=== PATIENT | male | born 1960 | race Caucasian/White ===

== ENCOUNTER → 2017-09-27 12:36 | Outpatient (CLI) | payer MEDICARE ==
[~2017-09-27] VITALS: Ht 195.6 cm; Wt 163.3 kg
[~2017-09-27 12:36] MED LIST: ALTACE10 MG PO; CIPRO500 MG PO; FLOMAX0.4 MG PO; GEMFIBROZIL600 MG PO; GLIPIZIDE10 MG PO; GLUCOTROL 5 MG T5 MG PO; HYDROCHLOROTH12.5 M1 PO; HYDROCHLOROTHIA25 MG PO; IMDUR30 MG PO; ISOSORBIDE MONO10 MG PO; LACTINEX GRANUL1 PCK PO; LANTUS INSULIN10 ML SC; MONOKET10 MG; OMEGA 3 FISH OI1 CAP PO; PERCOCET 10/3251 TA1 PO; PLAVIX75 MG PO; RESTORIL15 MG PO; TOPROL XL25 MG PO; VIIBRYD40 MG PO
[2017-09-27 14:32] VITALS: Ht 195.6 cm; Wt 163.3 kg
== END | disposition home or self-care (01) ==
LOC: D.FANS 08-31 09:00
DX: E66.01 Morbid (severe) obesity due to excess calories (principal)

== ENCOUNTER → 2017-12-06 07:36 | Outpatient (CLI) | payer MEDICARE ==
[2017-09-27 14:32] VITALS: BMI 42.7
== END | disposition home or self-care (01) ==
LOC: D.RT 07:36
DX: R06.02 Shortness of breath (principal)

== ENCOUNTER 2018-11-16 07:10 | Outpatient (CLI) | payer MEDICARE ==
[2017-09-27 14:32] VITALS: BMI 42.7
== END 2018-11-16 09:00 | disposition home or self-care (01) ==
LOC: D.OPS 07:10
PROVIDERS: ATTEND Surgery
DX: E66.01 Morbid (severe) obesity due to excess calories (principal)

== ENCOUNTER 2018-11-27 06:10 | Day surgery (SDC) | payer MEDICARE ==
[~2018-11-27] VITALS: Ht 195.6 cm; Wt 165.5 kg
[2018-11-27 06:39] LABS: HEMOGLOBIN 15.3 g/dL (13.5-17.5); MCH 29.4 pg (26.0-34.0); MCHC 33.3 g/dL (31.0-37.0); MCV 88.5 fL (80.0-100.0); MEAN PLATELET VOLUME 9.7 fL (7.4-10.4); RBC 5.2 10x6/uL (4.20-6.10); RDW 14.2 % (11.5-14.5)
[2018-11-27 06:57] LABS: CALC OSMOLALITY 285 mosm/kg (275-300); CALCIUM 9.3 mg/dL (8.5-10.1); CARBON DIOXIDE 25.7 mmol/L (21.0-32.0); CHLORIDE - SERUM 104 mmol/L (98-107); CREATININE - SERUM 0.9 mg/dL (0.6-1.3); SODIUM 138 mmol/L (136-145); UREA NITROGEN 31 mg/dL (7-18); eGFR NON AFRICAN AMERICAN > 90 mL/min (90-120)
[2018-11-27 06:58] LABS: GLUCOSE 157 mg/dL (74-106)
[2018-11-27] MEDS ORDERED: TOUJEO SOL300 UNIT/1 SC (07:32)
[2018-11-27] MEDS ORDERED: VICTOZA0.6 MG/0.1 SQ (07:32)
[2018-11-27] MEDS ORDERED: PROZAC40 MG PO (07:32)
[2018-11-27] MEDS ORDERED: HYDROCODON-ACE1 EA10 PO (07:32)
[2018-11-27] MEDS ORDERED: NIASPAN500 MG PO (07:33)
[2018-11-27] MEDS ORDERED: GLUCOPHAGE1000 MG PO (07:34)
[2018-11-27 07:59] VITALS: BP 139/69; Ht 195.6 cm; Wt 165.5 kg
--- NOTE | 2018-11-27 09:17 | NUR ---
0915 [facility] DIET SERVED. AT BEDSIDE.
--- NOTE | 2018-11-27 09:46 | NUR ---
0950 DC INSTS GIVEN VOICED UNDERSTANDING GETTING DRESSED RELEASED IN WC WITH ESCORT.
== END 2018-11-27 10:10 | disposition home or self-care (01) ==
LOC: D.OPS 06:10
PROVIDERS: Anesthesiology; ATTEND Surgery
DX: K29.80 Duodenitis without bleeding (principal); K29.50 Unspecified chronic gastritis without bleeding; K20.9 Esophagitis, unspecified; E66.01 Morbid (severe) obesity due to excess calories; G47.33 Obstructive sleep apnea (adult) (pediatric); Z68.42 Body mass index [BMI] 45.0-49.9, adult; Z01.812 Encounter for preprocedural laboratory examination

== ENCOUNTER 2018-12-21 14:40 | Inpatient (IN) | payer MEDICARE ==
[~2018-12-21] VITALS: Ht 193 cm; Wt 171.5 kg
[~2018-12-21 14:40] MED LIST changes: +GLUCOPHAGE1000 MG PO; +HYDROCODON-ACE1 EA10 PO; +NIASPAN500 MG PO; +PROZAC40 MG PO; +TOUJEO SOL300 UNIT/1 SC; +VICTOZA0.6 MG/0.1 SQ
[2019-01-05] MEDS ORDERED: OZEMPIC SQ (14:35)
[2019-01-05 15:43] LABS: ANION GAP 18.2 mmol/L (8-16); CALCIUM 9.3 mg/dL (8.5-10.1); CARBON DIOXIDE 23.9 mmol/L (21.0-32.0); CREATININE - SERUM 1.2 mg/dL (0.6-1.3); POTASSIUM - SERUM 4.1 mmol/L (3.5-5.1)
[2019-01-05 15:47] LABS: HEMATOCRIT 42.9 % (42.0-54.0); HEMOGLOBIN 14.6 g/dL (13.5-17.5); MCH 30.2 pg (26.0-34.0); MCV 88.6 fL (80.0-100.0); MEAN PLATELET VOLUME 9.8 fL (7.4-10.4); RBC 4.84 10x6/uL (4.20-6.10); RDW 13.9 % (11.5-14.5)
[2019-01-08 07:56] VITALS: BP 151/89; BMI 45.6
[2019-01-08 15:24] VITALS: BP 137/72
[2019-01-08 15:47] VITALS: BP 145/78
--- NOTE | 2019-01-08 19:28 | NUR ---
PATIENT C/O LEFT ARM PAIN AND HAND NUMBNESS. EXPLAINED TO PATIENT THAT THIS COULD BE DUE TO POSITIONING DURING PROCEDURE OR GAS, PROVIDED PATIENT A WARM PACK FOR SHOULDER. NOTIFIED DR HOFFMANN OF PATIENTS PAIN AND NUMBNESS AND HE STATED THAT THIS WAS PROBABLY DUE TO CAUSES THAT NURSE HAD EXPLAINED TO PATIENT AND NO OTHER ORDERS RECIEVED
--- NOTE | 2019-01-08 20:00 | NUR ---
ALERT AND ORIENTIATED RESTING IN BED WITH C PAP IN USE, AT BEDSIDE, 30ML WATER GIVEN, INSTRUCTED COULD HAVE 30ML EVERY 30 MIN AND NO MORE VERBALIZED UNDERSTANDING, INSTRUCTED WOULD NEED TO WALK A LITTLE WAY ABOUT 9 PM, STATES IF MY SHOULDER WILL QUIT HURTING,STERI STRIPS INTACT TO ABD LAP SITES SEE SHIFT ASSESSMENT, CALL LIGHT IN REACH
[2019-01-08 20:31] VITALS: BP 161/74
--- NOTE | 2019-01-08 21:15 | NUR ---
REFUSED TO WALK STATES MY SHOULDER STILL HURTS TO MUCH, EXPLAINED THAT DR WANTED HIM TO WALK [place], STATES I KNOW THAT BUT PTS HAVE RIGHTS TOO AND I DONT WANT TO WALK
[2019-01-09 00:15] VITALS: BP 127/73
[2019-01-09 05:08] VITALS: BP 164/72
[2019-01-09 06:27] LABS: BASOPHILS 0.2 % (0-2); EOSINOPHILS 0.1 % (0-7); HEMATOCRIT 41.1 % (42.0-54.0); HEMOGLOBIN 13.6 g/dL (13.5-17.5); IMMATURE GRANULOCYTES 0.4 % (0-5); LYMPHOCYTES 14.2 % (15-50); MCH 29.6 pg (26.0-34.0); MCHC 33.1 g/dL (31.0-37.0); MCV 89.3 fL (80.0-100.0); MEAN PLATELET VOLUME 9.9 fL (7.4-10.4); MONOCYTES 7.3 % (2-11); NEUTROPHILS 77.8 % (40-80); PLATELET COUNT 305 10x3/uL (130-400); RDW 14.2 % (11.5-14.5); WBC 13.3 10x3/uL (4.8-10.8)
[2019-01-09 07:02] LABS: ALBUMIN 3.3 g/dL (3.4-5.0); ALKALINE PHOSPHATASE 71 U/L (46-116); ALT (SGPT) 55 U/L (10-68); BILIRUBIN - TOTAL 0.25 mg/dL (0.2-1.3); CALC OSMOLALITY 285 mosm/kg (275-300); CALCIUM 8.8 mg/dL (8.5-10.1); CARBON DIOXIDE 23.5 mmol/L (21.0-32.0); CHLORIDE - SERUM 104 mmol/L (98-107); CREATININE - SERUM 0.9 mg/dL (0.6-1.3); POTASSIUM - SERUM 4.1 mmol/L (3.5-5.1); PROTEIN - SERUM 6.7 g/dL (6.4-8.2); SODIUM 139 mmol/L (136-145); UREA NITROGEN 24 mg/dL (7-18); eGFR NON AFRICAN AMERICAN > 90 mL/min (90-120)
[2019-01-09 07:17] LABS: GLUCOSE 171 mg/dL (74-106)
[2019-01-09 09:13] VITALS: BP 180/75
[2019-01-09 09:14] VITALS: Ht 193 cm; Wt 171.5 kg
[2019-01-09] MEDS ORDERED: OXYCODONE HCL5 M1 PO (09:51)
[2019-01-09] MEDS ORDERED: ZOFRAN ODT4 MG/UDTAB PO (09:51)
[2019-01-09 12:29] VITALS: BP 154/66
--- NOTE | 2019-01-09 12:40 | NUR ---
IV REMOVED FROM LEFT HAND WITH CATH INTACT, NO REDNESS OR EDEMA AT SITE. DISCHARGE INSTRUCTIONS EXPLAINED IN DETAIL TO PATIENT AND SPOUSE INCLUDING MEDICATIONS TO CONTINUE, DIET AND ACTIVITY, BOTH VOICED UNDERSTANDING. PATIENT TAKEN BY WHEELCHAIR TO PRIVATE CAR BY VOLUNTEER
== END 2019-01-09 12:42 | disposition home or self-care (01) | DRG 621 ==
LOC: D.SDCHOLD 01-08 07:32 → D.MS 01-08 14:42
PROVIDERS: Anesthesiology; ADMIT Surgery; ATTEND Surgery
PROC: 0DB64Z3 Excision of Stomach, Percutaneous Endoscopic Approach, Vertical (ICD-10-PCS; principal; 2019-01-08 09:30)
DX: E66.01 Morbid (severe) obesity due to excess calories (principal); Z68.42 Body mass index [BMI] 45.0-49.9, adult; G47.33 Obstructive sleep apnea (adult) (pediatric)

== ENCOUNTER 2019-01-10 16:29 | Inpatient (IN) | payer MEDICARE ==
[~2019-01-10] VITALS: Ht 193 cm; Wt 158.8 kg
[~2019-01-10 16:29] MED LIST changes: +OXYCODONE HCL5 M1 PO; +OZEMPIC SQ; +ZOFRAN ODT4 MG/UDTAB PO
[2019-01-10 18:34] LABS: BASOPHILS 0.1 % (0-2); EOSINOPHILS 1.2 % (0-7); HEMOGLOBIN 13.6 g/dL (13.5-17.5); IMMATURE GRANULOCYTES 0.2 % (0-5); LYMPHOCYTES 7.8 % (15-50); MCHC 33.2 g/dL (31.0-37.0); MCV 90.5 fL (80.0-100.0); MEAN PLATELET VOLUME 9.6 fL (7.4-10.4); MONOCYTES 8.4 % (2-11); NEUTROPHILS 82.3 % (40-80); PLATELET COUNT 272 10x3/uL (130-400); RBC 4.53 10x6/uL (4.20-6.10); WBC 16.3 10x3/uL (4.8-10.8)
[2019-01-10 19:07] LABS: ALBUMIN 3.3 g/dL (3.4-5.0); ALKALINE PHOSPHATASE 93 U/L (46-116); ALT (SGPT) 57 U/L (10-68); BILIRUBIN - TOTAL 0.44 mg/dL (0.2-1.3); CALC OSMOLALITY 281 mosm/kg (275-300); CALCIUM 8.6 mg/dL (8.5-10.1); CARBON DIOXIDE 25.1 mmol/L (21.0-32.0); CHLORIDE - SERUM 101 mmol/L (98-107); CREATININE - SERUM 0.9 mg/dL (0.6-1.3); GLUCOSE 155 mg/dL (74-106); POTASSIUM - SERUM 4.1 mmol/L (3.5-5.1); PROTEIN - SERUM 6.2 g/dL (6.4-8.2); SODIUM 139 mmol/L (136-145); eGFR NON AFRICAN AMERICAN > 90 mL/min (90-120)
[2019-01-10 19:10] LABS: UREA NITROGEN 15 mg/dL (7-18)
[2019-01-10 20:00] VITALS: BP 148/77
[2019-01-11] VITALS (7 sets, daily range): BP systolic 103–148; BP diastolic 52–77; Ht 193 cm; Wt 158.8 kg
[2019-01-11 03:44] LABS: APPEARANCE CLEAR (CLEAR); COLOR YELLOW (YELLOW)
[2019-01-11 03:45] LABS: BILIRUBIN NEGATIVE (NEGATIVE); GLUCOSE NEGATIVE (NEGATIVE); KETONE NEGATIVE (NEGATIVE); NITRITE NEGATIVE (NEGATIVE); PROTEIN NEGATIVE (NEGATIVE); SPECIFIC GRAVITY 1.015 (1.005-1.020); UROBILINOGEN NORMAL (NORMAL)
[2019-01-11 03:47] LABS: BACTERIA FEW /hpf (NONE SEEN); EPITHELIAL CELLS 0-5 /hpf (0-5); RED CELLS - URINE 0-5 /hpf (0-5); WHITE CELLS - URINE 0-5 /hpf (0-5)
--- NOTE | 2019-01-11 07:14 | NUR ---
PT IS RESTING IN BED WITH EYES CLOSED. RESPIRATIONS ARE EVEN AND UNLABORED. PT IS EASILY AROUSED WITH VERBAL STIMULATION. SPOUSE IS AT BEDSIDE. PT DENIES PRESENCE OF PAIN AT THIS TIME. [facility] [employer] DILAUDID IS AVAILABLE. PT ONLY COMPLAINT IS NPO STATUS.PT EDUCATED ON NPO STATUS. PT AND PT SPOUSE VERBALIZE UNDERSTANDING. LAP SITES TO ABDOMEN X 7. ABDOMEN IS DISTENDED. BED IS IN THE LOWEST POSITION. CALL LIGHT AND BEDSIDE TABLE ARE WITHIN REACH. SIDE RAILS X 2. PT DENIES FURTHER NEEDS. WILL CONT TO MONITOR.
[2019-01-11 11:45] LABS: BASOPHILS 0.2 % (0-2); EOSINOPHILS 2.8 % (0-7); HEMOGLOBIN 13.4 g/dL (13.5-17.5); IMMATURE GRANULOCYTES 0.5 % (0-5); LYMPHOCYTES 12.9 % (15-50); MCH 30.2 pg (26.0-34.0); MCHC 33.5 g/dL (31.0-37.0); MCV 90.3 fL (80.0-100.0); MEAN PLATELET VOLUME 9.5 fL (7.4-10.4); MONOCYTES 8.5 % (2-11); NEUTROPHILS 75.1 % (40-80); PLATELET COUNT 265 10x3/uL (130-400); RBC 4.43 10x6/uL (4.20-6.10); RDW 14.1 % (11.5-14.5); WBC 19.6 10x3/uL (4.8-10.8)
[2019-01-11 11:59] LABS: ANION GAP 11.9 mmol/L (8-16); CREATININE - SERUM 1.1 mg/dL (0.6-1.3); POTASSIUM - SERUM 3.9 mmol/L (3.5-5.1)
--- NOTE | 2019-01-12 00:56 | NUR ---
PT RESTING IN BED. ALERT AND ORIENTED. NO SIGNS OF DISTRESS. BREATHING EVEN AND UNLABORED. PT STATES NO PROBLEMS AT THIS TIME. IV SITE RT AC DRESSING CLEAN DRY AND ITNACT. ABD INCISONS CLEAN DRY AND INTACT. 2LO2 NASAL CANNULA. WILL CONTINUE PLAN OF CARE. CALL LIGHT IN REACH. BED LOWERED AND LOCKED.
[2019-01-12 04:00] VITALS: BP 128/59
--- NOTE | 2019-01-12 06:32 | NUR ---
I have reviewed this patient and I concur with the Shift Assessment completed by the Licensed Practical Nurse today this shift.
[2019-01-12 06:53] LABS: ANION GAP 12.7 mmol/L (8-16); CALCIUM 8.6 mg/dL (8.5-10.1); CARBON DIOXIDE 26.8 mmol/L (21.0-32.0); CREATININE - SERUM 1.1 mg/dL (0.6-1.3); POTASSIUM - SERUM 3.5 mmol/L (3.5-5.1)
[2019-01-12 06:57] LABS: BASOPHILS 0.2 % (0-2); EOSINOPHILS 3.9 % (0-7); HEMATOCRIT 35.7 % (42.0-54.0); HEMOGLOBIN 11.7 g/dL (13.5-17.5); IMMATURE GRANULOCYTES 0.3 % (0-5); MCH 29.8 pg (26.0-34.0); MCHC 32.8 g/dL (31.0-37.0); MCV 90.8 fL (80.0-100.0); MEAN PLATELET VOLUME 9.9 fL (7.4-10.4); NEUTROPHILS 71.6 % (40-80); PLATELET COUNT 287 10x3/uL (130-400); RBC 3.93 10x6/uL (4.20-6.10); WBC 17.2 10x3/uL (4.8-10.8)
--- NOTE | 2019-01-12 08:00 | NUR ---
ALERT AND ORIENTEDX4 WITH LIMITED ROM TO LT. ARM DUE TO RIB PAIN. PT UP TO SIDE OF BED WITH ASSSIT OF THERAPY. LUNGS CTA. HRRR. ABDOMEN SOFT WITH BS NOTED. LIDOCAINE PATCH APPLIED TO LEFT SCAPULA AREA. SCD'S INTACT
[2019-01-12 08:29] VITALS: BP 171/71
--- NOTE | 2019-01-12 09:00 | NUR ---
ALERT AND ORIENTED WITH ABDOMEN OBESE WITH BS NOTED. SUTURES INTACT TO ABDOMEN WITH STERISTRIPS INTACT. LUNGS CTA AND STATED DIDN'T SLEEP WELL LAST NIGHT DUE TO NOT ABLE TO HAVE C-PAP FOR SLEEPING ASSIST. TELEMETRY INTACT AND DENIES ANY PAIN AT THIS TIME. BS NOTED X4 ANTERIOR AND STATES IS HAVING FLATULANCE. ENCOURAGED TO USE CALL LIGHT FOR ASSIST WITH PRESENT.
--- NOTE | 2019-01-12 14:11 | NUR ---
NUTRITION F/U CHART REVIEWED. PT SLEEPING, FAMILY AT BEDSIDE. NURSING REPORTS PROVIDING PT WITH BARIATRIC CLEARS. WILL CONTINUE TO MONITOR PT PROGRESS. RD FOLLOWING
[2019-01-12] MEDS ORDERED: LEVOFLOXACIN500 MG PO (15:05)
[2019-01-12 16:00] VITALS: BP 140/63
[2019-01-12 18:19] VITALS: BP 140/63
[2019-01-12 21:13] VITALS: BP 133/64
--- NOTE | 2019-01-13 00:42 | NUR ---
PT RESTING IN BED. EYES CLOSED. NO SIGNS OF DISTRESS. BREATHING EVEN AND UNLABORED. IV SITE LT AC DRESSING CLEAN DRY AND INTACT. NO SIGNS OF INFECTION. WILL CONTINUE PLAN OF CARE. BED LOWERED AND LOCKED. BED RAILS UP X2. CALL LIGHT IN REACH.
[2019-01-13 01:15] VITALS: BP 130/60
[2019-01-13 08:45] VITALS: BP 143/75
[2019-01-13 09:18] LABS: BASOPHILS 0.3 % (0-2); EOSINOPHILS 6.1 % (0-7); HEMATOCRIT 35.2 % (42.0-54.0); HEMOGLOBIN 11.8 g/dL (13.5-17.5); IMMATURE GRANULOCYTES 0.5 % (0-5); LYMPHOCYTES 14.3 % (15-50); MCHC 33.5 g/dL (31.0-37.0); MCV 89.6 fL (80.0-100.0); MEAN PLATELET VOLUME 9.7 fL (7.4-10.4); MONOCYTES 8.3 % (2-11); NEUTROPHILS 70.5 % (40-80); PLATELET COUNT 322 10x3/uL (130-400); RBC 3.93 10x6/uL (4.20-6.10); RDW 13.6 % (11.5-14.5); WBC 14.9 10x3/uL (4.8-10.8)
[2019-01-13 09:35] LABS: ALKALINE PHOSPHATASE 133 U/L (46-116); ALT (SGPT) 33 U/L (10-68); BILIRUBIN - TOTAL 0.56 mg/dL (0.2-1.3); CALCIUM 8.8 mg/dL (8.5-10.1); CARBON DIOXIDE 24.3 mmol/L (21.0-32.0); CHLORIDE - SERUM 102 mmol/L (98-107); POTASSIUM - SERUM 3.6 mmol/L (3.5-5.1); PROTEIN - SERUM 6.7 g/dL (6.4-8.2); SODIUM 135 mmol/L (136-145); UREA NITROGEN 13 mg/dL (7-18); eGFR NON AFRICAN AMERICAN 81 mL/min (90-120)
[2019-01-13 09:37] LABS: ALBUMIN 2.4 g/dL (3.4-5.0); CALC OSMOLALITY 275 mosm/kg (275-300); GLUCOSE 201 mg/dL (74-106)
--- NOTE | 2019-01-13 11:02 | NUR ---
IV DC WITH CATH INTACT, DC INSTUCTIONS GIVEN PT VERABLIOZES UNDERSTANDING AT BEDSIDE, LEAVING VIA WHEELCHAIR VIA HOSPTIAL STAFF VIA PRIVATE VECHILE IN STABLE CONDITION
--- NOTE | 2019-01-16 07:12 | MORECARE ---
CASE MANAGEMENT DISCHARGE SUMMARY PATIENT: EDEL HERNANDEZ UNIT: [id number] ADM DATE: 01/12/19 AGE: 58 : 56 SEX: M ROOM/BED: D.2234 AUTHOR: RK FARLEY PHYSICIAN: REFERRING PHYSICIAN: IVAN HOFFMANN MD DATE OF SERVICE: 01/16/19 Discharge Plan Patient Name: EDEL HERNANDEZ [facility] [facility] 1960 Planned Disposition: Anticipated Discharge Date: Discharge Date: 01/13/2019 Expected LOS: 0 Initial Reviewer: [email or web address] Initial Review Date: 01/16/2019 Generated: 01/16/19 8:12 am Coverage Notice Reviewer: [id number] - Candice Harding Notice Issued Date-Time: 01/12/2019 13:37 Notice Type: Medicare Outpatient Observation Notice Notice Delivered To: Family Member Relationship to Patient: Spouse Bariatric Program Coordinator Name: Solange Hernandez Delivery Method: HAND - Hand Delivered Ngozi Days: Prior Verbal Notification: Recipient Understood Notice: Yes Recipient Signature: Yes Med Rec Note Co-signed by Attending: Coverage Notice Comment: SANDERS delivered. Patient is asleep. I explained it to his , she asked he not be awakened. Sanders given and copy placed in [facility] Patient Name: EDEL HERNANDEZ Page [phone] at 0712 All edits/amendments must be made on the electronic document DICTATION DATE: 01/16/19711 LEAN LEADER: AMEYA 01/16/19711 RPT#: [id number] DC DATE:01/13/19 STATUS: DIS IN [facility] [address] [place] [address] END OF REPORT
== END 2019-01-13 11:07 | disposition home or self-care (01) | DRG 948 ==
LOC: D.MS 16:29 → OBSVTIME 17:40 → D.MS 17:41
PROVIDERS: ADMIT Surgery; ATTEND Surgery
DX: G89.18 Other acute postprocedural pain (principal); Z68.42 Body mass index [BMI] 45.0-49.9, adult; R50.82 Postprocedural fever; E66.01 Morbid (severe) obesity due to excess calories; E11.9 Type 2 diabetes mellitus without complications; I10 Essential (primary) hypertension; Z98.84 Bariatric surgery status; D73.5 Infarction of spleen

== ENCOUNTER 2019-07-23 13:36 | Inpatient (IN) | payer OTHER ==
[~2019-07-23] VITALS: Ht 195.6 cm; Wt 154.0 kg
[~2019-07-23 13:36] MED LIST changes: +LEVOFLOXACIN500 MG PO
[2019-07-23 14:58] VITALS: BP 146/86; BMI 40.0
[2019-07-23 15:22] VITALS: BP 146/86
[2019-07-23 15:48] LABS: BASOPHILS 0.3 % (0-2); EOSINOPHILS 0.3 % (0-7); HEMOGLOBIN 15.4 g/dL (13.5-17.5); IMMATURE GRANULOCYTES 0.2 % (0-5); LYMPHOCYTES 23.2 % (15-50); MCH 29.1 pg (26.0-34.0); MCHC 33.5 g/dL (31.0-37.0); MCV 86.8 fL (80.0-100.0); MEAN PLATELET VOLUME 9.9 fL (7.4-10.4); MONOCYTES 9.2 % (2-11); NEUTROPHILS 66.8 % (40-80); PLATELET COUNT 271 10x3/uL (130-400); RDW 14.9 % (11.5-14.5); WBC 10.8 10x3/uL (4.8-10.8)
[2019-07-23 16:08] LABS: ALBUMIN 3.6 g/dL (3.4-5.0); ANION GAP 15.2 mmol/L (8-16); BILIRUBIN - TOTAL 0.4 mg/dL (0.2-1.3); CALCIUM 8.7 mg/dL (8.5-10.1); CARBON DIOXIDE 24.9 mmol/L (21.0-32.0); CREATININE - SERUM 1.2 mg/dL (0.6-1.3); POTASSIUM - SERUM 4.1 mmol/L (3.5-5.1)
[2019-07-23 16:51] LABS: ERYTHROCYTE SEDIMENTATION RATE 20 mm/hr (0-20)
[2019-07-23 20:00] VITALS: BP 135/71
[2019-07-24] VITALS: BP 141/69
--- NOTE | 2019-07-24 02:19 | NUR ---
I have reviewed this patient and I concur with the Shift Assessment completed by the Licensed Practical Nurse today this shift.
[2019-07-24 04:00] VITALS: BP 133/76
[2019-07-24 06:13] LABS: BASOPHILS 0.3 % (0-2); EOSINOPHILS 1.2 % (0-7); HEMATOCRIT 45.4 % (42.0-54.0); HEMOGLOBIN 14.8 g/dL (13.5-17.5); IMMATURE GRANULOCYTES 0.3 % (0-5); LYMPHOCYTES 25.7 % (15-50); MCH 28.5 pg (26.0-34.0); MCHC 32.6 g/dL (31.0-37.0); MCV 87.3 fL (80.0-100.0); MEAN PLATELET VOLUME 10.1 fL (7.4-10.4); MONOCYTES 12.6 % (2-11); NEUTROPHILS 59.9 % (40-80); PLATELET COUNT 237 10x3/uL (130-400); RDW 15.1 % (11.5-14.5); WBC 10.7 10x3/uL (4.8-10.8)
[2019-07-24 06:20] LABS: APTT 30.9 SECONDS (22.8-39.4); INR 1.14 (0.85-1.17); PROTIME 14.5 SECONDS (11.6-15.0)
[2019-07-24 06:22] LABS: D-DIMER-QUANTITATIVE 0.48 ug/mLFEU (0.20-0.54)
[2019-07-24 06:35] LABS: CALC OSMOLALITY 276 mosm/kg (275-300); CALCIUM 8.4 mg/dL (8.5-10.1); CARBON DIOXIDE 25.4 mmol/L (21.0-32.0); CHLORIDE - SERUM 101 mmol/L (98-107); GLUCOSE 160 mg/dL (74-106); MAGNESIUM - SERUM 1.6 mg/dL (1.8-2.4); PHOSPHOROUS 3.5 mg/dL (2.5-4.9); POTASSIUM - SERUM 4.2 mmol/L (3.5-5.1); SODIUM 136 mmol/L (136-145); UREA NITROGEN 18 mg/dL (7-18); eGFR NON AFRICAN AMERICAN 81 mL/min (90-120)
--- NOTE | 2019-07-24 07:20 | NUR ---
RECIEVE REPORT. RESTING IN BED WATCHING TV. ALERT AND ORIENTED X4. REPORTS PAIN. FOLLOW PAIN MANAGEMENT ORDERED. CONTINUE PLAN OF CARE AND SAFETY PRECAUTIONS.
[2019-07-24 07:58] VITALS: BP 122/65
[2019-07-24 11:37] VITALS: BP 114/69
[2019-07-24 14:47] VITALS: Ht 195.6 cm; Wt 154.0 kg
[2019-07-24 15:42] VITALS: BP 122/70
--- NOTE | 2019-07-24 19:40 | NUR ---
PT DENIES NEEDS AT THIS TIME STATES PAIN IS BETTER IS PRESENT WITH CALL LIGHT BED IS LOW AND LOCKED PT UP ADLIB AND TOLERATING WELL
[2019-07-24 20:27] VITALS: BP 136/68
[2019-07-25 00:56] VITALS: BP 129/69
[2019-07-25 05:19] VITALS: BP 122/62
[2019-07-25 06:11] LABS: BASOPHILS 0.6 % (0-2); EOSINOPHILS 6.3 % (0-7); HEMATOCRIT 44.6 % (42.0-54.0); HEMOGLOBIN 14.6 g/dL (13.5-17.5); IMMATURE GRANULOCYTES 0.3 % (0-5); LYMPHOCYTES 35.7 % (15-50); MCH 28.4 pg (26.0-34.0); MCHC 32.7 g/dL (31.0-37.0); MCV 86.8 fL (80.0-100.0); MEAN PLATELET VOLUME 10.1 fL (7.4-10.4); MONOCYTES 16.6 % (2-11); NEUTROPHILS 40.5 % (40-80); PLATELET COUNT 246 10x3/uL (130-400); RBC 5.14 10x6/uL (4.20-6.10); RDW 15.1 % (11.5-14.5)
[2019-07-25 06:51] LABS: CALC OSMOLALITY 278 mosm/kg (275-300); CALCIUM 8.4 mg/dL (8.5-10.1); CARBON DIOXIDE 24.9 mmol/L (21.0-32.0); CHLORIDE - SERUM 103 mmol/L (98-107); CREATININE - SERUM 0.9 mg/dL (0.6-1.3); GLUCOSE 146 mg/dL (74-106); MAGNESIUM - SERUM 1.9 mg/dL (1.8-2.4); PHOSPHOROUS 4.3 mg/dL (2.5-4.9); POTASSIUM - SERUM 4.3 mmol/L (3.5-5.1); SODIUM 137 mmol/L (136-145); UREA NITROGEN 19 mg/dL (7-18); eGFR NON AFRICAN AMERICAN > 90 mL/min (90-120)
[2019-07-25 10:38] VITALS: BP 179/99
[2019-07-25] MEDS ORDERED: DOXYCYCLINE HY100 M2 PO (14:39)
[2019-07-25 15:26] VITALS: BP 120/65
--- NOTE | 2019-07-25 15:46 | NUR ---
REVIEWED DISCHARGE INSTRUCTION WITH PT AND . IV REMOVED. BELONGINGS INCLUDING CPAP TAKEN WITH.
--- NOTE | 2019-07-26 07:46 | MORECARE ---
CASE MANAGEMENT DISCHARGE SUMMARY PATIENT: EDEL TINEO UNIT: [id number] ADM DATE: 07/23/19 AGE: 58 : 56 SEX: M ROOM/BED: D.2104 AUTHOR: RK FARLEY PHYSICIAN: REFERRING PHYSICIAN: RUDY PINEDA MD DATE OF SERVICE: 07/26/19 Discharge Plan Patient Name: [facility]DEL [facility]INEO [facility] [facility] 1960 Planned Disposition: Home Anticipated Discharge Date: 07/25/19 Discharge Date: 07/25/2019 Expected LOS: 2 Initial Reviewer: [email or web address] Initial Review Date: 07/26/2019 Generated: 07/26/19 8:45 am Patient Name: EDEL TINEO Page [phone] at 0746 All edits/amendments must be made on the electronic document DICTATION DATE: 07/26/19744 BOILER TESTER: AMEYA 07/26/1947 RPT#: [id number] DC DATE:07/25/19 STATUS: DIS IN [facility] [address] [facility] [place] [address] END OF REPORT
== END 2019-07-25 15:47 | disposition home or self-care (01) | DRG 638 ==
LOC: D.SDCHOLD 13:36 → D.M2 13:36
PROVIDERS: Internal Medicine Nephrology; ADMIT Family Medicine; ATTEND Family Medicine
DX: E11.628 Type 2 diabetes mellitus with other skin complications (principal); L03.211 Cellulitis of face; Z68.41 Body mass index [BMI] 40.0-44.9, adult; E66.01 Morbid (severe) obesity due to excess calories; E11.9 Type 2 diabetes mellitus without complications; G89.29 Other chronic pain; M54.9 Dorsalgia, unspecified; F41.9 Anxiety disorder, unspecified

== ENCOUNTER 2020-02-08 14:33 | Emergency (ER) | payer OTHER ==
[~2020-02-08] VITALS: Ht 195.6 cm; Wt 152.3 kg
[~2020-02-08 14:33] MED LIST changes: +DOXYCYCLINE HY100 M2 PO
[2020-02-08 14:35] VITALS: BP 177/80; Ht 195.6 cm; Wt 152.3 kg
[2020-02-08 14:55] LABS: BASOPHILS 0.2 % (0-2); EOSINOPHILS 1.2 % (0-7); HEMATOCRIT 46.9 % (42.0-54.0); HEMOGLOBIN 15.6 g/dL (13.5-17.5); IMMATURE GRANULOCYTES 0.2 % (0-5); LYMPHOCYTES 17.3 % (15-50); MCH 29.7 pg (26.0-34.0); MCHC 33.3 g/dL (31.0-37.0); MCV 89.2 fL (80.0-100.0); MEAN PLATELET VOLUME 9.8 fL (7.4-10.4); MONOCYTES 6.7 % (2-11); NEUTROPHILS 74.4 % (40-80); PLATELET COUNT 276 10x3/uL (130-400); RBC 5.26 10x6/uL (4.20-6.10); RDW 13.3 % (11.5-14.5); WBC 12.2 10x3/uL (4.8-10.8)
[2020-02-08 15:20] LABS: CALC OSMOLALITY 280 mosm/kg (275-300); CALCIUM 9.5 mg/dL (8.5-10.1); CARBON DIOXIDE 22.8 mmol/L (21.0-32.0); CHLORIDE - SERUM 102 mmol/L (98-107); CREATININE - SERUM 1.6 mg/dL (0.6-1.3); GLUCOSE 153 mg/dL (74-106); POTASSIUM - SERUM 4.1 mmol/L (3.5-5.1); SODIUM 136 mmol/L (136-145); UREA NITROGEN 29 mg/dL (7-18); eGFR NON AFRICAN AMERICAN 47 mL/min (90-120)
[2020-02-08 15:29] LABS: ALKALINE PHOSPHATASE 109 U/L (30-120); ALT (SGPT) 31 U/L (10-68); AMYLASE - SERUM 42 U/L (25-115); LIPASE 126 U/L (73-393); PROTEIN - SERUM 7.5 g/dL (6.4-8.2)
[2020-02-08 15:30] LABS: TROPONIN-I < 0.017 ng/mL (0.000-0.060)
[2020-02-08 16:06] LABS: BACTERIA FEW /hpf (NEGATIVE); BILIRUBIN NEGATIVE (NEGATIVE); GLUCOSE NEGATIVE (NEGATIVE); KETONE NEGATIVE (NEGATIVE); NITRITE NEGATIVE (NEGATIVE); RED CELLS - URINE 25-50 /hpf (0-5); UROBILINOGEN NORMAL (NORMAL)
== END 2020-02-08 19:30 | disposition other institution (70) ==
LOC: D.ER 14:33
PROVIDERS: Family Medicine
DX: N13.2 Hydronephrosis with renal and ureteral calculous obstruction (principal); N17.9 Acute kidney failure, unspecified; E11.9 Type 2 diabetes mellitus without complications; I10 Essential (primary) hypertension; R11.0 Nausea